=== PATIENT | female | born 1950 | race Caucasian/White ===

== ENCOUNTER → 2018-09-01 09:17 | Outpatient (CLI) | payer MEDICARE, OTHER, SELFPAY ==
[2018-09-01 10:33] LABS: ALB/GLOB Ratio 1.3 RATIO (0.9-2.4); AST(SGOT) 13 U/L (15-37); Alanine Aminotransfer ALT/SGPT 23 U/L (13-56); Albumin, Serum 3.9 g/dL (3.2-5.0); Alkaline Phosphatase 83 U/L (45-117); Anion Gap 8 (5-15); BUN 19 mg/dL (7-18); BUN/Creat Ratio 21.9 RATIO (10-20); Calcium,Total 9.1 mg/dL (8.5-10.1); Chloride 109 mmol/L (98-107); Cholesterol 267 mg/dL (200); Creatinine, Serum 0.87 mg/dL (0.55-1.02); EST Glomerular Filtration Rate 70 mL/min (>60); Est Glom Filt Rate - Afr Amer 84 mL/min (>60); Globulin 3.1 g/dL (2.2-4.2); Glucose 88 mg/dL (74-106); High Density Lipoprotein 95 mg/dL; Potassium 3.7 mmol/L (3.5-5.1); Sodium Level 146 mmol/L (136-145); Triglycerides 105 mg/dL; Very Low Density Lipoprotein 21 mg/dL (5-40)
== END ==
PROVIDERS: Family Provider Family Medicine; PCP Family Medicine; Visit Provider Nurse Practitioner Family
DX: Z00.00 Encounter for general adult medical examination without abnormal findings (principal)
CPT/HCPCS: 36415; 80053; 80061

== ENCOUNTER → 2019-10-18 09:43 | Outpatient (CLI) | payer MEDICARE, OTHER, SELFPAY ==
[2019-10-18 13:05] LABS: Absolute Lymphocyte Count 1.49 X10^3/uL (0.83-4.51); Absolute Neutrophil Count 2.5 X10^3/uL (2.0-7.7); Basophil# 0.04 X10^3/uL; Basophil% 0.9 % (0-1); Eosinophils% 2.3 % (0-5); Hematocrit 41.7 % (37-47); Hemoglobin 13.5 g/dL (12.0-15.0); Lymphocyte # 1.49 X10^3/ul (4.0); Lymphocyte % 33.6 % (19-41); Mean Corp Hgb Conc 32.4 g/dL (32-36); Mean Corpuscular Volume 92.7 fL (81-99); Mean Platelet Vol. 10.5 fl (6.2-12.0); Monocyte# 0.31 X10^3/uL; NRBC Flagged by Analyzer 0 % (0-5); Neutrophil # 2.49 X10^3/uL (2.7-7.7); Platelet Count 294 K/mm3 (150-450); RBC Distribution Width CV 14.5 % (11.6-14.6); RBC Distribution Width SD 49.3 fl (35.1-43.9); White Blood Count 4.4 K/mm3 (4.4-11.0)
[2019-10-18 13:40] LABS: Albumin, Serum 3.8 g/dL (3.2-5.0); BUN 20 mg/dL (7-18); Creatinine, Serum 1.05 mg/dL (0.55-1.02); EST Glomerular Filtration Rate 56 mL/min (>60); Est Glom Filt Rate - Afr Amer 67 mL/min (>60); Glucose 83 mg/dL (74-106); Protein, Total 7.5 g/dL (6.4-8.2)
[2019-10-18 13:41] LABS: AST(SGOT) 15 U/L (15-37); Alanine Aminotransfer ALT/SGPT 27 U/L (13-56); Alkaline Phosphatase 76 U/L (45-117); Anion Gap 6 (5-15); Calcium,Total 9.8 mg/dL (8.5-10.1); Chloride 110 mmol/L (98-107); Cholesterol 276 mg/dL (200); Globulin 3.7 g/dL (2.2-4.2); High Density Lipoprotein 104 mg/dL; Potassium 3.4 mmol/L (3.5-5.1); Sodium Level 143 mmol/L (136-145); Triglycerides 126 mg/dL; Very Low Density Lipoprotein 25 mg/dL (5-40)
== END ==
PROVIDERS: PCP Family Medicine; Visit Provider Family Medicine
DX: Z00.00 Encounter for general adult medical examination without abnormal findings (principal); G62.0 Drug-induced polyneuropathy; Z85.3 Personal history of malignant neoplasm of breast; E78.00 Pure hypercholesterolemia, unspecified
CPT/HCPCS: 36415; 80053; 80061; 85025

== ENCOUNTER → 2019-10-26 10:43 | Outpatient (CLI) | payer MEDICARE, OTHER, SELFPAY ==
--- NOTE | 2019-10-26 10:51 | BD_ITS ---
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 COMPARISON: None. FINDINGS: Lumbar Spine (L1-L4): g/cm2 (1.122) / T-score (-0.7) / Z-score (1.0) Findings are suggestive of normal bone density with a low fracture risk. Left Femur Total: g/cm2 (0.884) / T-score (-1.0) / Z-score (0.3) Left Femoral Neck: g/cm2 (0.971) / T-score (-0.5) / Z-score (1.1) Right Femur Total: g/cm2 (0.821) / T-score (-1.5) / Z-score (-0.2) Right Femoral Neck: g/cm2 (0.905) / T-score (-1.0) / Z-score (0.6) BD/Dexa Bone Density Study IMPRESSION: The patient is considered osteopenic as outlined below according to World Rickey Organization (WHO) criteria with a low fracture risk. Reference Information: The T-score is the number of standard deviations above or below the standard which is normal for young adults at their peak bone mineral density. The World Health Organization (WHO) interprets the T-scores as follows: Above -1 Normal bone density Between -1 and -2.5 Osteopenia Equal to / or below -2.5 Osteoporosis As a practical clinical guideline, osteopenia may be graded as follows: Mild -1 through -1.5 Moderate -1.6 through -2.0 Severe -2.1 through -2.4 The Z-score is the number of standard deviations above or below age-matched controls. A Z-score of less than -1.5 would be considered abnormal. References: 1. NIH Osteoporosis and Related Bone Diseases http://www.osteo.org 2. International Society for Clinical Densitometry http://www.iscd.org 3. National Osteoporosis Foundation http://www.nof.org Electronically Signed: Kali Samayoa, at 12:28 EST , Service support ,
== END ==
PROVIDERS: PCP Family Medicine; Referring Provider Family Medicine; Visit Provider Family Medicine
DX: Z00.00 Encounter for general adult medical examination without abnormal findings (principal); Z78.0 Asymptomatic menopausal state
CPT/HCPCS: 77080

== ENCOUNTER → 2020-11-05 10:49 | Outpatient (CLI) | payer MEDICARE, OTHER, SELFPAY ==
[2020-11-05 12:20] LABS: Absolute Lymphocyte Count 1.46 X10^3/uL (0.83-4.51); Absolute Neutrophil Count 2.1 X10^3/uL (2.0-7.7); Basophil# 0.03 X10^3/uL; Basophil% 0.8 % (0-1); Eosinophil# 0.06 X10^3/uL; Eosinophils% 1.5 % (0-5); Hematocrit 40.3 % (37-47); Hemoglobin 13.5 g/dL (12.0-15.0); Lymphocyte # 1.46 X10^3/ul (4.0); Lymphocyte % 36.7 % (19-41); Mean Corp Hgb Conc 33.5 g/dL (32-36); Mean Corpuscular Hgb 31.2 pg (27.0-32.0); Mean Corpuscular Volume 93.1 fL (81-99); Mean Platelet Vol. 10.7 fl (6.2-12.0); Monocyte# 0.28 X10^3/uL; NRBC Flagged by Analyzer 0 % (0-5); Neutrophil # 2.14 X10^3/uL (2.7-7.7); Neutrophil % 53.7 % (47-70); Platelet Count 271 K/mm3 (150-450); RBC Distribution Width SD 49.9 fl (35.1-43.9); Red Blood Count 4.33 M/mm3 (4.2-5.4)
[2020-11-05 13:01] LABS: ALB/GLOB Ratio 1.1 RATIO (0.9-2.4); AST(SGOT) 13 U/L (15-37); Alanine Aminotransfer ALT/SGPT 21 U/L (13-56); Alkaline Phosphatase 71 U/L (45-117); Anion Gap 9 (5-15); BUN 21 mg/dL (7-18); BUN/Creat Ratio 18.8 RATIO (10-20); Calcium,Total 9.1 mg/dL (8.5-10.1); Chloride 106 mmol/L (98-107); Cholesterol 308 mg/dL (200); Creatinine, Serum 1.12 mg/dL (0.55-1.02); EST Glomerular Filtration Rate 51 mL/min (>60); Est Glom Filt Rate - Afr Amer 62 mL/min (>60); Globulin 3.6 g/dL (2.2-4.2); Glucose 89 mg/dL (74-106); High Density Lipoprotein 112 mg/dL; Potassium 3.6 mmol/L (3.5-5.1); Protein, Total 7.6 g/dL (6.4-8.2); Sodium Level 142 mmol/L (136-145); Thyroid Stim Hormone (TSH) 4.48 uIU/mL (0.358-3.74); Triglycerides 113 mg/dL; Very Low Density Lipoprotein 23 mg/dL (5-40)
== END ==
PROVIDERS: PCP Family Medicine; Referring Provider Family Medicine; Visit Provider Family Medicine
DX: E78.00 Pure hypercholesterolemia, unspecified (principal); M85.80 Other specified disorders of bone density and structure, unspecified site; Z85.3 Personal history of malignant neoplasm of breast; R79.89 Other specified abnormal findings of blood chemistry
CPT/HCPCS: 36415; 80053; 80061; 82306; 84439; 84443; 85025

== ENCOUNTER 2021-05-09 17:10 | Outpatient (CLI) | payer MEDICARE, OTHER, SELFPAY ==
[2021-05-09] MEDS: 0.9% Saline Lock 10 ML Syringe IV (17:20)
[2021-05-09 17:21] VITALS: BP 114/63; PULSE 83; RESP 16; TEMP 36.6; O2SAT 95; BMI 19.5
[2021-05-09 18:11] VITALS: BP 120/80; PULSE 66; RESP 16; TEMP 36.6; O2SAT 99
[2021-05-09 19:00] VITALS: BP 139/84; PULSE 63; RESP 16; TEMP 36.9; O2SAT 100
== END 2021-05-09 19:11 | disposition home or self-care (01) ==
LOC: ICUOUT 17:11 → MS2 17:12
PROVIDERS: PCP Family Medicine; Visit Provider Nurse Practitioner Acute Care
DX: Z23 Encounter for immunization (principal); U07.1 COVID-19
CPT/HCPCS: J7050; M0243; A4216; Q0244

== ENCOUNTER 2021-11-07 14:30 | Emergency (ER) | payer MEDICARE, OTHER, SELFPAY ==
[2021-11-07 14:31] VITALS: BP 126/81; PULSE 88; RESP 16; TEMP 36.1; O2SAT 100; BMI 19.3
--- NOTE | 2021-11-07 14:50 | RAD_ITS ---
STUDY: X-RAY - LEFT FOOT CLINICAL: Female, 71 years old. Pain following injury. TECHNIQUE: 3 view(s) of the foot. COMPARISON: None. FINDINGS: There is an enthesophyte involving the posterior superior calcaneus at the site of insertion of the Achilles tendon. Normal visualized subtalar, talonavicular, calcaneocuboid, tarsal and tarsometatarsal articulations. Normal metatarsi. Normal metatarsophalangeal joint of the great toe. There is a bipartite tibial sesamoid. Normal interphalangeal joint of the great toe. Normal phalanges of the great toe. Normal second through fifth metatarsophalangeal joints. Normal interphalangeal joints and phalanges of the lesser toes. Dorsal soft tissue swelling. RAD/Foot min 3 Views IMPRESSION: Dorsal soft tissue swelling. No fracture is seen. Electronically Signed: Kali Samayoa MD at 15:07 EST ,
--- NOTE | 2021-11-07 16:08 | EX.ED.DYSGE1 ---
HPI <OH Stockton - Last Filed: 11/07/21 16:14> History of Present Illness Chief Complaint: Lower Extremity Injury Narrative Narrative: 71-year-old female presents with left foot injury. Yesterday a decorative ceramic knickknacks fell off the shelf and landed on her left foot. She does have a small laceration and has developed swelling. She is ambulatory since then. No weakness, numbness, tingling. She came in to make sure she does not have a fracture. PFSH <OH Stockton - Last Filed: 11/07/21 16:14> [facility] Medical History COVID-19 Home Medications letrozole 2.5 mg PO DAILY 05/09/21 [History Last Taken Unknown] Allergy/AdvReac Type Severity Reaction Status Date / Time No Known Allergies Allergy Verified 11/07/21 14:33 Social History Smoking Status: Never smoker ROS <OH Stockton - Last Filed: 11/07/21 16:14> ROS ED ROS Narrative Constitutional: Negative for fever, chills, malaise. Eyes: Negative for visual change. ENT: Negative for sore throat, ear pain, rhinorrhea. CVS: Negative for palpitations, chest pain, syncope. Respiratory: Negative for shortness of breath, cough, orthopnea. GI: Negative for abdominal pain, nausea, vomiting. : Negative for dysuria, hematuria or frequency. Neuro: Negative for headache, motor/sensory dysfunction. Skin: Negative for rash, abscess, or wound. Musc: Positive for foot pain, swelling, trauma. Heme: Negative for easy bruising, bleeding, lymphadenopathy. EXAM <OH Stockton - Last Filed: 11/07/21 16:14> Physical Exam Narrative Exam Narrative: CONST: Patient sitting in no acute distress. EYES: Normal inspection. NECK: Normal inspection. RESP: No respiratory distress, CTAB. CVS: Regular rate and rhythm, no murmur, no gallop. SKIN: Color normal, no rash, 2 cm superficial laceration mid-dorsal left foot. EXTREMITIES: Soft tissue swelling over the dorsum of the left foot and tenderness over the second and third metatarsals. Ankle nontender. Full range of motion, normal strength and sensation, 2+ DP pulse. NEURO: Oriented x4. PSYCH: Normal affect. Const Vital Signs: 11/07/21 14:31 Temperature 97 F L Temperature Source Temporal Pulse Rate 88 Respiratory Rate 16 Blood Pressure 126/81 H Blood Pressure Mean 96 Pulse Ox 100 Oxygen Delivery Method Room Air <Dr. Pam Davila, DO - Last Filed: 11/11/21 16:48> Physical Exam Const Vital Signs: 11/07/21 14:31 Temperature 97 F L Temperature Source Temporal Pulse Rate 88 Respiratory Rate 16 Blood Pressure 126/81 H Blood Pressure Mean 96 Pulse Ox 100 Oxygen Delivery Method Room Air MDM <Geena Rodrigues PA - Last Filed: 11/07/21 16:14> [facility] Narrative Medical decision making narrative: Patient had blunt trauma to her left foot. She is ambulatory. She appears well nontoxic. Afebrile and vital signs within normal limits. She has soft tissue swelling and tenderness over the dorsum of the foot. Ankle nontender. Neurovascularly intact. X-ray shows no fracture or dislocation. We discussed RICE protocol and she was discharged in stable condition. Diagnoses 1. Left foot contusion 2. Left foot abrasion Radiography Diagnostic Testing: Clinical Impression(s) from Imaging Studies Foot X-Ray 11/07/21 14:50 IMPRESSION: Dorsal soft tissue swelling. No fracture is seen. Electronically Signed: Kali Samayoa MD at 15:07 EST , <Dr. Pam Davila, DO - Last Filed: 11/11/21 16:48> [facility] Narrative Medical decision making narrative: Patient evaluated independently and in conjunction with physician critical care physician assistant. Agree with note above unless documented otherwise. I was personally present or immediately available for all clinically relevant procedures and performed my own physical exam and review of systems. Radiography Diagnostic Testing: Clinical Impression(s) from Imaging Studies Foot X-Ray 11/07/21 14:50 IMPRESSION: Dorsal soft tissue swelling. No fracture is seen. Electronically Signed: Kali Samayoa MD at 15:07 EST , Discharge Plan Triage Chief Complaint: Lower Extremity Injury ED Provider: Geena Rodrigues Dx/Rx/DC Orders Clinical Impression: Contusion of foot, Abrasion of foot Instructions: ED Foot Contusion Prescriptions: No Action letrozole 2.5 mg tablet 2.5 mg PO DAILY RF: 0 Primary Care Provider: Steve Hart Referrals: Steve Hart MD [Primary Care Provider] - Activity Restrictions/Additional Instructions: Your x-ray showed no broken bones in your foot. Please rest and elevate your leg and ice it to reduce the swelling. Take Tylenol or ibuprofen as needed. Disposition Disposition: Home, Self Care Discharge Date/Time: 11/07/21 16:58
== END 2021-11-07 16:58 | disposition home or self-care (01) ==
LOC: ED 16:50
PROVIDERS: Emergency Provider Physician Assistant; PCP Family Medicine; Visit Provider Physician Assistant
DX: S90.32XA Contusion of left foot, initial encounter (principal); S91.312A Laceration without foreign body, left foot, initial encounter; W22.8XXA Striking against or struck by other objects, initial encounter; Y93.9 Activity, unspecified; Y92.9 Unspecified place or not applicable; Z86.16 Personal history of COVID-19
CPT/HCPCS: 73630; 99282

== ENCOUNTER 2021-11-12 07:48 | Outpatient (CLI) | payer MEDICARE, OTHER, SELFPAY ==
[2021-11-12 10:34] LABS: Vitamin D,25 Hydroxy 122.4 ng/mL
[2021-11-12 11:10] LABS: AST(SGOT) 16 U/L (15-37); Alanine Aminotransfer ALT/SGPT 21 U/L (13-56); Albumin, Serum 3.8 g/dL (3.2-5.0); Alkaline Phosphatase 77 U/L (45-117); Anion Gap 5 (5-15); BUN 21 mg/dL (7-18); BUN/Creat Ratio 22.3 RATIO (10-20); Calcium,Total 9.4 mg/dL (8.5-10.1); Chloride 108 mmol/L (98-107); Cholesterol 274 mg/dL (200); Creatinine, Serum 0.94 mg/dL (0.55-1.02); EST Glomerular Filtration Rate 63 mL/min (>60); Est Glom Filt Rate - Afr Amer 76 mL/min (>60); Globulin 3.8 g/dL (2.2-4.2); Glucose 97 mg/dL (74-106); High Density Lipoprotein 91 mg/dL; Potassium 3.4 mmol/L (3.5-5.1); Protein, Total 7.6 g/dL (6.4-8.2); Sodium Level 142 mmol/L (136-145); T4 Free Direct 0.87 ng/dL (0.76-1.46); Triglycerides 87 mg/dL; Very Low Density Lipoprotein 17 mg/dL (5-40)
== END 2021-11-12 23:59 | disposition home or self-care (01) ==
LOC: MTLAB 07:50
PROVIDERS: PCP Family Medicine; Referring Provider Family Medicine; Visit Provider Family Medicine
DX: E78.00 Pure hypercholesterolemia, unspecified (principal); M85.80 Other specified disorders of bone density and structure, unspecified site; R79.89 Other specified abnormal findings of blood chemistry
CPT/HCPCS: 36415; 80053; 80061; 82306; 84439

== ENCOUNTER → 2022-04-22 | Outpatient (CLI) | payer MEDICARE, OTHER, SELFPAY ==
--- NOTE | 2022-04-22 08:44 | BI_ITS ---
MAMMOGRAPHY - UNILATERAL SCREENING: RIGHT BREAST REASON FOR EXAM: Female, 72 years old. Routine annual screening examination (unilateral). PERTINENT HISTORY: Non-contributory. TECHNIQUE: Digital examination. Mediolateral oblique (MLO) and craniocaudad (CC) views of the breast were obtained. CAD: CAD was performed on this study. COMPARISON: 04/19/2021 FINDINGS: Breast Composition: There are scattered areas of fibroglandular density. There are no dominant masses or suspicious calcifications. No other significant abnormalities are identified. BI/SCREEN MAMM (CAD) W/CHRISTA UNI R IMPRESSION: Stable right screening mammogram. ASSESSMENT CATEGORY: BIRADS Category 1: Negative. A letter regarding these results will be sent to the patient by the facility within 30 days. FOLLOW UP RECOMMENDATION: Yearly follow up mammogram recommended. (A) [id number] Approximately 10% of breast cancers are not detected by mammography. A normal mammogram should not delay biopsy of a clinically suspicious abnormality. [id number] Electronically Signed: Julius Polo MD at 16:27 EDT ,
== END | disposition home or self-care (01) ==
LOC: OPBI 08:34
PROVIDERS: PCP Family Medicine; Visit Provider Nurse Practitioner Family
DX: Z12.31 Encounter for screening mammogram for malignant neoplasm of breast (principal)
CPT/HCPCS: 77063; 77067

== ENCOUNTER → 2022-05-26 | Outpatient (CLI) | payer MEDICARE, OTHER, SELFPAY ==
[2022-05-26 09:15] LABS: Anion Gap 7 (5-15); BUN 17 mg/dL (7-18); BUN/Creat Ratio 17.8 RATIO (10-20); Calcium,Total 9.5 mg/dL (8.5-10.1); Chloride 109 mmol/L (98-107); Cholesterol 303 mg/dL (200); Creatinine, Serum 0.96 mg/dL (0.55-1.02); EST Glomerular Filtration Rate 61 mL/min (>60); Est Glom Filt Rate - Afr Amer 74 mL/min (>60); Glucose 91 mg/dL (74-106); High Density Lipoprotein 89 mg/dL; Magnesium 2.3 mg/dL (1.6-2.6); Potassium 3.4 mmol/L (3.5-5.1); Sodium Level 146 mmol/L (136-145); Triglycerides 145 mg/dL; Very Low Density Lipoprotein 29 mg/dL (5-40)
[2022-05-26 09:18] LABS: Vitamin D,25 Hydroxy 57.8 ng/mL
== END | disposition home or self-care (01) ==
LOC: PAVLAB 08:31
PROVIDERS: PCP Family Medicine; Referring Provider Family Medicine; Visit Provider Family Medicine
DX: E78.00 Pure hypercholesterolemia, unspecified (principal); R25.1 Tremor, unspecified; M85.80 Other specified disorders of bone density and structure, unspecified site
CPT/HCPCS: 36415; 80048; 80061; 82306; 83735

== ENCOUNTER → 2022-11-13 | Outpatient (CLI) | payer MEDICARE, OTHER, SELFPAY | END | disposition home or self-care (01) | LOC: PAVLAB 09:19 | PROVIDERS: PCP Family Medicine; Referring Provider Nurse Practitioner Family; Visit Provider Nurse Practitioner Family | DX: Z00.00 Encounter for general adult medical examination without abnormal findings (principal) ==

== ENCOUNTER → 2022-11-17 | Outpatient (CLI) | payer MEDICARE, OTHER, SELFPAY ==
[2022-11-17 15:35] LABS: AST(SGOT) 22 U/L (15-37); Alanine Aminotransfer ALT/SGPT 30 U/L (13-56); Albumin, Serum 3.8 g/dL (3.2-5.0); Alkaline Phosphatase 90 U/L (45-117); Anion Gap 8 (5-15); BUN 15 mg/dL (7-18); BUN/Creat Ratio 15.8 RATIO (10-20); Calcium,Total 9.2 mg/dL (8.5-10.1); Chloride 109 mmol/L (98-107); Creatinine, Serum 0.95 mg/dL (0.55-1.02); EST Glomerular Filtration Rate 62 mL/min (>60); Est Glom Filt Rate - Afr Amer 75 mL/min (>60); Globulin 3.8 g/dL (2.2-4.2); Glucose 88 mg/dL (74-106); Potassium 3.6 mmol/L (3.5-5.1); Protein, Total 7.6 g/dL (6.4-8.2); Sodium Level 145 mmol/L (136-145)
== END | disposition home or self-care (01) ==
LOC: MFPLAB 12:04
PROVIDERS: PCP Family Medicine; Visit Provider Nurse Practitioner Family
DX: E87.6 Hypokalemia (principal)
CPT/HCPCS: 36415; 80053

== ENCOUNTER → 2023-05-04 | Outpatient (CLI) | payer MEDICARE, OTHER, SELFPAY ==
--- NOTE | 2023-05-04 12:44 | BI_ITS ---
MAMMOGRAPHY - UNILATERAL SCREENING: RIGHT BREAST REASON FOR EXAM: Female, 73 years old. Routine annual screening examination (unilateral). PERTINENT HISTORY: Personal history of breast cancer. Prior left mastectomy and radiation therapy. TECHNIQUE: Digital unilateral breast christa (3D mammographic acquisition) in the CC and MLO projections. 2-D mediolateral oblique (MLO) and craniocaudad (CC) views of both breasts were obtained. CAD: Full Field Digital Mammography with Computer Added Detection was performed. COMPARISON: Comparison is made with prior study dated April 22, 2022. FINDINGS: Breast Composition: There are scattered areas of fibroglandular density. There are no dominant masses or suspicious calcifications. No other significant abnormalities are identified. There has been no significant change since the prior study. BI/SCREEN MAMM (CAD) W/CHRISTA UNI R IMPRESSION: Stable unilateral screening mammogram. Yearly follow-up mammogram recommended. (A) ASSESSMENT CATEGORY: BIRADS Category 1: Negative. A letter regarding these results will be sent to the patient by the facility within 30 days. Approximately 10% of breast cancers are not detected by mammography. A normal mammogram should not delay biopsy of a clinically suspicious abnormality. [id number] Electronically Signed: Kali Samayoa MD at 13:40 EDT ,
== END | disposition home or self-care (01) ==
LOC: OPBI 12:43
PROVIDERS: PCP Family Medicine; Referring Provider Nurse Practitioner Family; Visit Provider Nurse Practitioner Family
DX: Z12.31 Encounter for screening mammogram for malignant neoplasm of breast (principal); Z85.3 Personal history of malignant neoplasm of breast
CPT/HCPCS: 77063; 77067

== ENCOUNTER → 2023-11-23 | Outpatient (CLI) | payer OTHER, SELFPAY ==
[2023-11-23 12:21] LABS: Absolute Lymphocyte Count 1.69 X10^3/uL (0.83-4.51); Absolute Neutrophil Count 2.3 X10^3/uL (2.0-7.7); Basophil# 0.05 X10^3/uL; Basophil% 1.1 % (0-1); Eosinophil# 0.08 X10^3/uL; Eosinophils% 1.8 % (0-5); Hematocrit 41.4 % (37-47); Hemoglobin 13.1 g/dL (12.0-15.0); Lymphocyte # 1.69 X10^3/ul (0.83-4.51); Lymphocyte % 37.7 % (19-41); Mean Corp Hgb Conc 31.6 g/dL (32-36); Mean Corpuscular Volume 91.6 fL (81-99); Mean Platelet Vol. 10.7 fl (6.2-12.0); Monocyte# 0.31 X10^3/uL; Monocyte% 6.9 % (0-10); NRBC Flagged by Analyzer 0 % (0-5); Neutrophil # 2.34 X10^3/uL (2.7-7.7); Neutrophil % 52.3 % (47-70); Platelet Count 282 K/mm3 (150-450); RBC Distribution Width CV 15.8 % (11.6-14.6); RBC Distribution Width SD 53.1 fl (35.1-43.9); Red Blood Count 4.52 M/mm3 (4.2-5.4); White Blood Count 4.5 K/mm3 (4.4-11.0)
[2023-11-23 13:04] LABS: ALB/GLOB Ratio 0.9 RATIO (0.9-2.4); AST(SGOT) 22 U/L (15-37); Alanine Aminotransfer ALT/SGPT 33 U/L (13-56); Albumin, Serum 3.6 g/dL (3.2-5.0); Alkaline Phosphatase 97 U/L (45-117); Anion Gap 5 (5-15); BUN 14 mg/dL (7-18); BUN/Creat Ratio 14.5 RATIO (10-20); Calcium,Total 9.1 mg/dL (8.5-10.1); Chloride 111 mmol/L (98-107); Cholesterol 273 mg/dL (200); Creatinine, Serum 0.96 mg/dL (0.55-1.02); EST Glomerular Filtration Rate 60 mL/min (>60); Est Glom Filt Rate - Afr Amer 73 mL/min (>60); Globulin 4.1 g/dL (2.2-4.2); Glucose 93 mg/dL (74-106); High Density Lipoprotein 92 mg/dL; Potassium 3.6 mmol/L (3.5-5.1); Protein, Total 7.7 g/dL (6.4-8.2); Sodium Level 143 mmol/L (136-145); Thyroid Stim Hormone (TSH) 3.41 uIU/mL (0.358-3.74); Triglycerides 122 mg/dL; Very Low Density Lipoprotein 24 mg/dL (5-40)
== END | disposition home or self-care (01) ==
LOC: MFPLAB 10:01
PROVIDERS: PCP Family Medicine; Visit Provider Family Medicine
DX: G62.0 Drug-induced polyneuropathy (principal)
CPT/HCPCS: 36415; 80053; 80061; 84443; 85025

== ENCOUNTER → 2024-05-10 | Outpatient (CLI) | payer MEDICARE, SELFPAY ==
--- NOTE | 2024-05-10 09:12 | BI_ITS ---
MAMMOGRAPHY - UNILATERAL SCREENING: RIGHT BREAST REASON FOR EXAM: Female, 74 years old. Routine annual screening examination (unilateral). PERTINENT HISTORY: Personal history of breast cancer. The patient is status post left mastectomy with radiation and chemotherapy. TECHNIQUE: Digital unilateral breast christa (3D mammographic acquisition) in the CC and MLO projections. 2-D mediolateral oblique (MLO) and craniocaudad (CC) views of both breasts were obtained. CAD: Full Field Digital Mammography with Computer Added Detection was performed. COMPARISON: Comparison is made with prior study dated May 04, 2023 and April 22, 2022. FINDINGS: Breast Composition: There are scattered areas of fibroglandular density. There are no dominant masses or suspicious calcifications. Stable 5 mm well-defined nodule in the deep upper lateral aspect of the right breast suggestive of a small lymph node. No other significant abnormalities are identified. There has been no significant change since the prior study. BI/SCREEN MAMM (CAD) W/CHRISTA UNI R IMPRESSION: Stable unilateral screening mammogram. Yearly follow-up mammogram recommended. (A) ASSESSMENT CATEGORY: BIRADS Category 2: Benign. A letter regarding these results will be sent to the patient by the facility within 30 days. Approximately 10% of breast cancers are not detected by mammography. A normal mammogram should not delay biopsy of a clinically suspicious abnormality. [id number] Electronically Signed: Kali Samayoa MD at 13:44 EDT ,
== END | disposition home or self-care (01) ==
PROVIDERS: PCP Family Medicine; Referring Provider Family Medicine; Visit Provider Family Medicine
DX: Z12.31 Encounter for screening mammogram for malignant neoplasm of breast (principal); Z85.3 Personal history of malignant neoplasm of breast; Z90.12 Acquired absence of left breast and nipple; Z92.21 Personal history of antineoplastic chemotherapy; Z92.3 Personal history of irradiation
CPT/HCPCS: 77063; 77067

== ENCOUNTER → 2024-05-31 | Outpatient (CLI) | payer MEDICARE, SELFPAY ==
--- NOTE | 2024-05-31 08:12 | BD_ITS ---
STUDY: DUAL ENERGY X-RAY ABSORPTIOMETRY / DXA REASON FOR EXAM: Female, 74 years old. [id number] TECHNIQUE: Bone Mineral Density (BMD) measurements of lumbar spine and bilateral hips were obtained. COMPARISON: Comparison is made with prior study dated October 26, 2019. FINDINGS: Lumbar Spine (L1-L4): g/cm2 (0.920) / T-score (-1.2) / Z-score (1.1) Findings are suggestive of osteopenia with a low fracture risk. Left Femur Total: g/cm2 (0.826) / T-score (-0.9) / Z-score (0.7) Left Femoral Neck: g/cm2 (0.815) / T-score (-0.3) / Z-score (1.3) Right Femur Total: g/cm2 (0.779) / T-score (-1.3) / Z-score (0.3) Right Femoral Neck: g/cm2 (0.755) / T-score (-0.8) / Z-score (1.1) The T-Scores on the most recent prior examination were: Lumbar Spine (L1-L4): There has been improvement of bone density since the previous examination. Left Femur Total: which represents an improvement of 0.6%. Right Femur Total: which represents an improvement of 2.5%. BD/Dexa Bone Density Study IMPRESSION: The patient is considered osteopenic as outlined below according to World Rickey Organization (WHO) criteria with a low fracture risk. There has been improvement of bone density since the previous examination. Reference Information: The T-score is the number of standard deviations above or below the standard which is normal for young adults at their peak bone mineral density. The World Health Organization (WHO) interprets the T-scores as follows: Above -1 Normal bone density Between -1 and -2.5 Osteopenia Equal to / or below -2.5 Osteoporosis As a practical clinical guideline, osteopenia may be graded as follows: Mild -1 through -1.5 Moderate -1.6 through -2.0 Severe -2.1 through -2.4 The Z-score is the number of standard deviations above or below age-matched controls. A Z-score of less than -1.5 would be considered abnormal. References: 1. NIH Osteoporosis and Related Bone Diseases www osteo.org 2. International Society for Clinical Densitometry www iscd.org 3. National Osteoporosis Foundation www nof.org Electronically Signed: Kali Samayoa MD at 9:03 EDT ,
== END | disposition home or self-care (01) ==
LOC: OPBD 08:08
PROVIDERS: PCP Family Medicine; Referring Provider Family Medicine; Visit Provider Family Medicine
DX: M85.80 Other specified disorders of bone density and structure, unspecified site (principal); R25.1 Tremor, unspecified; E78.00 Pure hypercholesterolemia, unspecified; N95.9 Unspecified menopausal and perimenopausal disorder
CPT/HCPCS: 77080

== ENCOUNTER 2024-10-16 17:49 | Emergency (ER) | payer MEDICARE, SELFPAY ==
[2024-10-16 17:49] VITALS: BP 158/88; PULSE 90; RESP 15; TEMP 36.4; O2SAT 98
--- NOTE | 2024-10-16 17:53 | RAD_ITS ---
PROCEDURE: ANKLE MIN 3 VIEWS REASON FOR EXAM: Injury TECHNIQUE: 3 views of the right ankle COMPARISON: None FINDINGS: There is an oblique fracture of the distal fibula without significant displacement. The ankle mortise is intact. A spur is present at the Achilles insertion on the calcaneus. Soft tissue swelling is present about the ankle, especially of the lateral malleolus. RAD/Ankle min 3 Views IMPRESSION: 1. Acute nondisplaced lateral malleolar fracture. Reading Location: [facility]
--- NOTE | 2024-10-16 19:36 | RAD_ITS ---
PROCEDURE: TOE(S) MIN 2 VIEWS REASON FOR EXAM: First toe pain TECHNIQUE: Four view(s) of 1st toe COMPARISON: None. FINDINGS: There is a nondisplaced avulsion fracture at the base of the distal phalanx of the great toe, at the plantar medial aspect. No soft tissue abnormality identified. RAD/Toe(s) Min 2 Views IMPRESSION: Acute nondisplaced avulsion fracture at the base of the distal phalanx great to e. Reading Location: [facility]
--- NOTE | 2024-10-16 20:22 | ED.VIS.LOWEX ---
HPI <OH Nguyen - Last Filed: 10/16/24 21:17> History of Present Illness Chief Complaint: Lower Extremity Injury Narrative Narrative: Patient presenting today with pain to her right ankle that she has had since Thursday. She reports that she was going down the steps and slipped, twisting her ankle and falling. She did not hit her head and denies LOC. She reports pain and swelling to her right ankle and pain to her left first toe. She has been ambulating although it has been painful. PFSH <OH Nguyen - Last Filed: 10/16/24 21:17> REPLACED BY [facility] Medical History COVID-19 Home Medications ?Medication ?Instructions ?Recorded ?Last Taken ?Type letrozole 2.5 mg tablet 2.5 mg PO DAILY 05/09/21 Unknown History benzonatate 100 mg capsule 100 mg PO TID #30 caps 10/18/23 Unknown Rx Allergy/AdvReac Type Severity Reaction Status Date / Time No Known Allergies Allergy Verified 10/16/24 17:49 Social History Smoking Status: Never smoker ROS <OH Nguyen - Last Filed: 10/16/24 21:17> ROS ED Constitutional Constitutional ED: Denies chills or fever(s) Cardiovascular Cardiovascular: Denies chest pain Respiratory/Chest Respiratory/Chest: Denies dyspnea Musculoskeletal Musculoskeletal: Reports arthralgias Integumentary Denies Abrasions Neurologic Neurologic: Denies paresthesias EXAM <OH Nguyen - Last Filed: 10/16/24 21:17> Physical Exam Const Vital Signs: 10/16/24 17:49 Temperature 97.5 F L Temperature Source Temporal Pulse Rate 90 Respiratory Rate 15 Blood Pressure 158/88 H Blood Pressure Mean 111 Pulse Ox 98 Oxygen Delivery Method Room Air Positive well nourished, well developed and no apparent distress General Appearance ED: well developed HEENT Reports normocephalic and head/scalp atraumatic Mouth ED: Yes moist mucous membranes normal Eyes PERRL and EOMs intact bilaterally Neck full ROM and supple Chest Wall inspection of chest normal Resp normal respiratory effort and clear to auscultation bilaterally Cardio regular rate and regular rhythm Back/Spine normal ROM and normal to inspection Extremity Extremity Narrative: Swelling and bruising to the right lateral malleolus and left first toe with a partial subungual hematoma to the left first toe. Limited ROM to the right ankle due to swelling and pain. No proximal fibular tenderness. Bilateral DP pulse 2+, good cap refill, sensation intact Neuro oriented x3, CN's II-XII intact bilaterally, moves all extremities, no focal motor deficits and no sensory deficits noted Sensorium / Orientation: awake and alert Psych mental status grossly normal and thought process normal Skin no rashes or lesions noted and no wounds <Jimmie Rachel MD - Last Filed: 10/16/24 23:19> Physical Exam Const Vital Signs: 10/16/24 17:49 Temperature 97.5 F L Temperature Source Temporal Pulse Rate 90 Respiratory Rate 15 Blood Pressure 158/88 H Blood Pressure Mean 111 Pulse Ox 98 Oxygen Delivery Method Room Air MDM <OH Nguyen - Last Filed: 10/16/24 21:17> [facility] Narrative Medical decision making narrative: Patient presenting today with right ankle and left first toe pain after mechanical fall occurred on Thursday. She does have swelling and bruising to both the right lateral malleolus and left first toe. X-rays of both were obtained. She has a nondisplaced lateral malleolus fracture on the right and a left nondisplaced avulsion fracture at the base of the distal phalanx of the great toe. Although it has been uncomfortable, she has been ambulating on the fractures since Thursday. I did speak with podiatry. They recommend placing her in a walking boot and having her follow-up as an outpatient. I did julia tape her toe. I offered analgesia and she declined. She can alternate Tylenol and ibuprofen as needed at home for pain. RICE instructions were discussed. I recommended that she follow-up with the graphic arts instructor and patient discharged home in stable condition. Radiography X-Ray: Read by ED Physician Diagnostic Testing: Clinical Impression(s) from Imaging Studies Ankle X-Ray 10/16/24 17:53 IMPRESSION: 1. Acute nondisplaced lateral malleolar fracture. Reading Location: [facility] Toe X-Ray 10/16/24 19:36 IMPRESSION: Acute nondisplaced avulsion fracture at the base of the distal phalanx great toe. Reading [facility] <Jimmie Rachel MD - Last Filed: 10/16/24 23:19> MDM Radiography Diagnostic Testing: Clinical Impression(s) from Imaging Studies Ankle X-Ray 10/16/24 17:53 IMPRESSION: 1. Acute nondisplaced lateral malleolar fracture. [facility] 10/16/24 19:36 IMPRESSION: Acute nondisplaced avulsion fracture at the base of the distal phalanx great toe. Reading [facility] Management Discussion w/another healthcare provider: Magnetic Resonance Imaging Director Treatment and Re-Evaluation Narrative: Dr. Rachel: I have personally performed a face to face assessment of the patient and have reviewed the MARIA A Note. I performed a substantive portion of the visit including all aspects of the following. My stewart findings include: History is twisted right ankle 2 days ago, also injured left great toe. Noted swelling lateral aspect of right ankle but was not going down, so presents to the emergency department for evaluation. Exam is GCS 15. ABCs intact. Positive swelling and tenderness to palpation right lateral malleolus. Palpable dorsalis pedis pulse. No proximal fibular head tenderness. No palpable Achilles tendon deficit, right. Flexion extension of right knee intact. Mild tenderness to palpation left great toe. Medical Decision Making: Obtain x-rays. On my independent interpretation of the x-ray of the right ankle, there is a nondisplaced lateral malleolus fracture. There is also left great toe fracture on my independent interpretation of the x-ray. I reviewed the radiology reports for these x-rays and they confirm my independent interpretations. Patient discussed with podiatry. She will be placed in a walking boot and she has a walker at home. She will follow-up with podiatry but should be nonweightbearing on her right lower extremity. She declined any narcotic analgesia and decided to take [id number] medications. Left great toe was julia taped. She can be weightbearing as tolerated on her left foot. Disposition is discharged home in stable condition. Other additions or changes: [None] Discharge Plan Triage Chief Complaint: Lower Extremity Injury ED Midlevel Provider: Vianey Mackey ED Provider: Jimmie Rachel Dx/Rx/DC Orders Clinical Impression: Ankle fracture, right, Fracture of toe Instructions: ED Ankle Fracture, ED Fracture, Toe, Closed Prescriptions: No Action benzonatate 100 mg capsule 100 mg PO TID Qty: 30 0RF letrozole 2.5 mg tablet 2.5 mg PO DAILY Primary Care Provider: Steve Hart Referrals: Steve Hart MD [Primary Care Provider] - Benjamin Mcclure DPM [Med Staff - Courtesy Staff] - 5-7 Days Activity Restrictions/Additional Instructions: Follow-up with podiatry. Keep ankle elevated, alternate Tylenol and ibuprofen as needed for your pain. Ice the area several times daily to help with pain and swelling. Print Language: Citizen Of [place] Disposition Disposition: Home, Self Care Discharge Date/Time: 10/16/24 21:06
== END 2024-10-16 21:06 | disposition home or self-care (01) ==
LOC: ED 20:26
PROVIDERS: Emergency Provider Emergency Medicine; PCP Family Medicine; Visit Provider Emergency Medicine
DX: S82.64XA Nondisplaced fracture of lateral malleolus of right fibula, initial encounter for closed fracture (principal); S92.425A Nondisplaced fracture of distal phalanx of left great toe, initial encounter for closed fracture; W10.9XXA Fall (on) (from) unspecified stairs and steps, initial encounter
CPT/HCPCS: 73610; 73660; 99282

== ENCOUNTER → 2025-05-16 | Outpatient (CLI) | payer MEDICARE, SELFPAY ==
--- NOTE | 2025-05-16 10:00 | BI_ITS ---
EXAM: SCREEN MAMM (CAD) W/CHRISTA UNI R DATE: 05/16/2025 CLINICAL HISTORY: F, Age 75 y/o , BREAST CANCER SCREENING Personal history of breast cancer. The patient is status post left mastectomy with radiation and chemotherapy. TECHNIQUE: Procedure Code: [id number] Modality: MG Procedure: SCREEN MAMM (CAD) W/CHRISTA UNI R COMPARISON: Prior exam(s) dated May 10, 2024.. FINDINGS: TISSUE DENSITY: There are scattered areas of fibroglandular density. Bilateral Breast Mammographic Findings: No significant masses, calcifications or other abnormalities are identified. Stable 5 mm well-defined nodule in the deep upper lateral aspect of the right breast. This most likely represents a small lymph node. No suspicious masses, areas of developing architectural distortion, or suspicious calcifications. There has been no significant interval change. BI/SCREEN MAMM (CAD) W/CHRISTA UNI R IMPRESSION: Stable unilateral screening mammogram. OVERALL FINAL ASSESSMENT BI-RADS 2: BENIGN RECOMMENDATION: Routine annual follow-up in 1 Year A letter with findings and recommendations will be mailed to the patient. Reading Location: [id number]
== END | disposition home or self-care (01) ==
PROVIDERS: PCP Family Medicine; Referring Provider Nurse Practitioner Family; Visit Provider Nurse Practitioner Family
DX: Z12.31 Encounter for screening mammogram for malignant neoplasm of breast (principal); Z85.3 Personal history of malignant neoplasm of breast; Z92.3 Personal history of irradiation; Z92.21 Personal history of antineoplastic chemotherapy; Z90.12 Acquired absence of left breast and nipple
CPT/HCPCS: 77063; 77067